=== PATIENT | female | born 1995 | race Caucasian/White ===

== ENCOUNTER 2018-04-19 07:52 | Observation (INO) | payer OTHER ==
[~2018-04-19] VITALS: Ht 157.5 cm; Wt 68.0 kg
[2018-04-19] MEDS ORDERED: PNV1TABL50 MT (08:51)
== END 2018-04-19 09:00 | disposition home or self-care (01) ==
LOC: L&D 07:52
PROVIDERS: ADMIT Obstetrics & Gynecology; ATTEND Obstetrics & Gynecology
DX: O48.0 Post-term pregnancy (principal); O26.893 Other specified pregnancy related conditions, third trimester; R10.30 Lower abdominal pain, unspecified; Z3A.40 40 weeks gestation of pregnancy
CPT/HCPCS: 99281; G0378

== ENCOUNTER 2018-04-24 00:20 | Inpatient (IN) | payer OTHER ==
[~2018-04-24] VITALS: Ht 162.6 cm; Wt 68.0 kg
[~2018-04-24 00:20] MED LIST: PNV1TABL50 MT
[2018-04-24] MEDS ORDERED: DEXT 5%/LR + PITOCIN 20UNITS/L 1,000 ML IV SCH (03:36)
[2018-04-24] MEDS ORDERED: MISOPROSTOL 100MCG TABLET VG PRN (03:45)
[2018-04-24] MEDS ORDERED: LIDOCAINE HCL 1% 20ML VIAL (Pyxis) INJ INFIL SCH (03:45)
[2018-04-24] MEDS ORDERED: BUTORPHANOL TARTRATE 2 MG/ML VIAL IV PRN (03:45)
[2018-04-24] MEDS ORDERED: NALOXONE HCL 0.4 MG/ML 1ML VIAL IM PRN (03:45)
[2018-04-24] MEDS: LACTATED RINGERS 1,000 ML IV SCH ×3 (04:12→11:44)
[2018-04-24 05:46] LABS: BASOPHILS % 0.3 % (0.0-2.0); EOSINOPHILS % 0.6 % (0.0-5.0); HEMATOCRIT. 39.1 % (36.0-48.0); HEMOGLOBIN. 12.8 g/dL (12.0-16.0); LYMPHOCYTES % 17.5 % (20.0-50.0); MEAN CORPUSCULAR HEMOGLOBIN 27.9 pg (28.0-32.0); MEAN CORPUSCULAR VOLUME 85.1 fL (81.0-99.0); MEAN PLATELET VOLUME 8.7 fl (7.4-10.4); MONOCYTES % 5.7 % (2.0-8.0); NEUTROPHILS % 75.9 % (40.0-76.0); PLATELET 227 x1000/uL (130-400); RED CELL DISTRIBUTION WIDTH 13.2 % (11.6-14.6)
[2018-04-24 05:53] LABS: INR 0.9; PARTIAL THROMBOPLASTIN TIME 30.6 sec (23.4-31.0); PROTHROMBIN TIME 9.5 sec (9.1-11.1)
[2018-04-24] MEDS: MISOPROSTOL 100MCG TABLET RC PRN ×2 (06:06→11:24)
[2018-04-24 06:10] LABS: CLARITY URINE CLEAR (CLEAR); COLOR URINE YELLOW (YELLOW); KETONES URINE NEGATIVE (NEGATIVE); LEUKOCYTE ESTERASE URINE 2+ (NEGATIVE); NITRITE URINE NEGATIVE (NEGATIVE); OCCULT BLOOD URINE 1+ (NEGATIVE); PROTEIN URINE NEGATIVE (NEGATIVE); SPECIFIC GRAVITY URINE 1.016 (1.005-1.030); UROBILINOGEN URINE 0.2 E.U./dL (0.2-1.0)
[2018-04-24 06:36] LABS: *AMPHETAMINES SCREEN URINE NEGATIVE (NEGATIVE)
[2018-04-24 06:37] LABS: *BARBITURATES SCREEN URINE NEGATIVE (NEGATIVE); *BENZODIAZEPINES SCREEN URINE NEGATIVE (NEGATIVE); *COCAINE SCREEN URINE NEGATIVE (NEGATIVE); METHADONE URINE SCREEN NEGATIVE (NEGATIVE); OPIATES URINE SCREEN NEGATIVE (NEGATIVE); PHENCYCLIDINE URINE SCREEN NEGATIVE (NEGATIVE)
[2018-04-24 06:38] LABS: CANNABINOID URINE SCREEN NEGATIVE (NEGATIVE)
[2018-04-24] MEDS ORDERED: BUPIVACAINE HCL/PF 0.25% (2.5MG/ML) 10ML ONE (10:27)
[2018-04-24] MEDS ORDERED: BUPIVACAINE HCL/NS/PF EPIDURAL 100 ML EP ONE (10:27)
[2018-04-24] MEDS ORDERED: FENTANYL CITRATE/PF 50MCG/ML 2ML VIAL ONE ×2 (10:27→15:27)
[2018-04-24] MEDS ORDERED: BUPIVACAINE HCL/NS/PF EPIDURAL 100 ML EP SCH (11:00)
[2018-04-24] MEDS ORDERED: INFLUENZA VIRUS VACCINE(AFLURIA) 0.5ML SYR IM ONE (12:00)
[2018-04-24] MEDS ORDERED: PNEUMOCOCCAL 23-VAL P-SAC VAC 0.5 ML IM ONE (12:00)
[2018-04-24 12:22] LABS: HEPATITIS B SURFACE ANTIGEN NEGATIVE
[2018-04-24] MEDS ORDERED: LACTATED RINGERS 1,000 ML IV SCH (14:00)
[2018-04-24] MEDS ORDERED: LIDOCAINE HCL/PF 2% 20MG/ML 5 ML/VIAL ONE ×2 (15:27→16:44)
[2018-04-24] MEDS ORDERED: IBUPROFEN 400MG TABLET PO PRN (18:00)
[2018-04-24] MEDS ORDERED: TETANUS, DIPHTHERIA, PERTUSSIS VAC/PF 0.5ML (>7YR OLD) IM ONE (18:00)
[2018-04-24] MEDS ORDERED: BISACODYL 10MG SUPP PR PRN (18:00)
[2018-04-24] MEDS ORDERED: BENZOCAINE/LANOLIN/ALOE VERA SPRAY TOP PRN (18:00)
[2018-04-24] MEDS ORDERED: HEMORRHOIDAL SUPP PR PRN (18:00)
[2018-04-24] MEDS ORDERED: LANOLIN OINT 0.25 GM TUBE TOP PRN (18:00)
[2018-04-24] MEDS ORDERED: GLYCERIN/WITCH HAZEL LEAF MEDICATED PAD TOP PRN (18:00)
[2018-04-24] MEDS ORDERED: DIPHENHYDRAMINE 25MG CAPSULE PO PRN (18:00)
[2018-04-24] MEDS: DEXT 5%/LR + PITOCIN 20UNITS/L 1,000 ML IV SCH ×2 (19:19→20:45)
[2018-04-24 21:00] VITALS: BP 122/73
[2018-04-24] MEDS ORDERED: DOCUSATE SODIUM 100MG CAPSULE PO SCH (21:00)
[2018-04-24 21:30] VITALS: BP 128/68
[2018-04-24 22:00] VITALS: BP 125/72
[2018-04-24] MEDS: ACETAMINOPHEN WITH CODEINE 300/30MG TABLET PO PRN (23:29)
[2018-04-25 04:00] VITALS: BP 113/69
[2018-04-25] MEDS: IBUPROFEN 800MG TABLET PO PRN ×2 (08:06→22:19)
[2018-04-25 08:30] VITALS: BP 113/81
[2018-04-25] MEDS: SIMETHICONE 80MG TABLET CHEW PO SCH ×4 (10:12→22:18)
[2018-04-25] MEDS: PRENATAL VIT/FE FUMARATE/FA TABLET PO SCH (10:12)
[2018-04-25] MEDS: FERROUS SULFATE 325MG TABLET PO SCH ×2 (13:05→17:59)
[2018-04-25] MEDS: ACETAMINOPHEN WITH CODEINE 300/30MG TABLET PO PRN (13:05)
[2018-04-25 16:00] VITALS: BP 110/86
[2018-04-25 22:00] VITALS: BP 107/80
[2018-04-25 22:07] LABS: BASOPHILS % 0.3 % (0.0-2.0); EOSINOPHILS % 1.2 % (0.0-5.0); HEMATOCRIT. 35.5 % (36.0-48.0); HEMOGLOBIN. 11.6 g/dL (12.0-16.0); LYMPHOCYTES % 19.8 % (20.0-50.0); MEAN CORPUSCULAR VOLUME 85.7 fL (81.0-99.0); MEAN PLATELET VOLUME 8.6 fl (7.4-10.4); MONOCYTES % 5.6 % (2.0-8.0); NEUTROPHILS % 73.1 % (40.0-76.0); PLATELET 230 x1000/uL (130-400); RED BLOOD CELL COUNT 4.14 mill/uL (4.2-5.4); RED CELL DISTRIBUTION WIDTH 13.4 % (11.6-14.6)
[2018-04-26 04:45] VITALS: BP 112/78
[2018-04-26] MEDS: FERROUS SULFATE 325MG TABLET PO SCH (08:40)
[2018-04-26] MEDS: PRENATAL VIT/FE FUMARATE/FA TABLET PO SCH (08:40)
[2018-04-26] MEDS: IBUPROFEN 800MG TABLET PO PRN (08:43)
[2018-04-26] MEDS: SIMETHICONE 80MG TABLET CHEW PO SCH (08:44)
[2018-04-26 08:45] VITALS: BP 110/66
[2018-04-26 08:46] LABS: BASOPHILS % 0.4 % (0.0-2.0); HEMATOCRIT. 36.9 % (36.0-48.0); HEMOGLOBIN. 12.1 g/dL (12.0-16.0); LYMPHOCYTES % 24.5 % (20.0-50.0); MEAN CORPUSCULAR HEMOGLOBIN 28.2 pg (28.0-32.0); MEAN CORPUSCULAR VOLUME 86.1 fL (81.0-99.0); MEAN PLATELET VOLUME 8.4 fl (7.4-10.4); MONOCYTES % 3.5 % (2.0-8.0); NEUTROPHILS % 69.6 % (40.0-76.0); PLATELET 223 x1000/uL (130-400); RED BLOOD CELL COUNT 4.28 mill/uL (4.2-5.4); RED CELL DISTRIBUTION WIDTH 13.6 % (11.6-14.6)
== END 2018-04-26 11:40 | disposition home or self-care (01) | DRG 560 ==
LOC: OBSVTOIN 00:20 → L&D 00:20 → 7EST PP/OB 21:00
PROVIDERS: ADMIT Specialist; ATTEND Specialist
PROC: 0KQM0ZZ Repair Perineum Muscle, Open Approach (ICD-10-PCS; 2018-04-24)
PROC: 3E0R3BZ Introduction of Anesthetic Agent into Spinal Canal, Percutaneous Approach (ICD-10-PCS; 2018-04-24)
PROC: 00HU33Z Insertion of Infusion Device into Spinal Canal, Percutaneous Approach (ICD-10-PCS; 2018-04-24)
PROC: 10E0XZZ Delivery of Products of Conception, External Approach (ICD-10-PCS; principal; 2018-04-24 17:29)
DX: O70.1 Second degree perineal laceration during delivery (principal); Z37.0 Single live birth; Z3A.40 40 weeks gestation of pregnancy; Z88.6 Allergy status to analgesic agent; Z88.2 Allergy status to sulfonamides; Z88.8 Allergy status to other drugs, medicaments and biological substances
CPT/HCPCS: 36415; 76815; 76818; 80305; 86592; 86703; 86762; 86850; 86900; 87340; 99281; J2590; J3010; J3490; J7120; A4315